=== PATIENT | male | born 1985 ===

== ENCOUNTER 2022-02-02 14:44 | Outpatient (REF) | payer MEDICAID, SELFPAY ==
[2022-02-02 18:28] LABS: Abs Immature Grans 0.01 10^3/uL (0.0-0.06); Absolute Basophil Count 0.02 10^3/uL (0.0-0.2); Absolute Eosinophil Count 0.07 10^3/uL (0.0-0.7); Absolute Lymphocyte Count 1.46 10^3/uL (1.2-3.4); Absolute Monocyte Count 0.49 10^3/uL (0.1-0.8); Absolute Neutrophil Count 4.37 10^3/uL (1.2-6.7); Basophils % 0.3; Eosinophils % 1.1; HCT 43.2 % (40.0-50.0); HGB 14.6 g/dL (13.5-17.5); Immature Grans % 0.2; Lymphocytes % 22.7; MCH 28.7 pg (27.0-33.0); MCHC 33.8 % (32.0-36.0); MCV 85 fL (80-95); MPV 9.6 fL (8.0-11.0); Monocytes % 7.6; Neutrophils % 68.1; Platelet Count 264 10^3/uL (130-400); RBC 5.09 10^6/uL (4.36-5.78); RDW 11.8 % (11.8-14.1); WBC 6.42 10^3/uL (4.4-10.8)
[2022-02-02 18:53] LABS: FREE T4 1.17 ng/dL (0.76-1.46); TSH 0.77 uIU/mL (0.36-3.74)
== END 2022-02-02 14:45 | disposition home or self-care (01) ==
LOC: NCHCN 14:44
PROVIDERS: Visit Provider Nurse Practitioner Family
DX: R53.83 Other fatigue (principal); F41.8 Other specified anxiety disorders
CPT/HCPCS: 84439; 84443; 85025